=== PATIENT | male | born 1960 | race Caucasian/White ===

== ENCOUNTER 2025-03-04 16:46 | Outpatient (CLI) | payer SELFPAY ==
--- NOTE | 2025-03-04 17:15 | DI.RAD_ITS ---
Exam(s) XR HAND LT COMPLETE XR FOREARM LT XR WRIST LT COMPLETE EXAM: XR WRIST LT COMPLETE and XR forearm LT and XR hand LT complete CLINICAL HISTORY: fall. TECHNIQUE: 2D digital imaging was performed of the left forearm, hand and wrist. Eight images were obtained. PA, oblique and lateral views were obtained. COMPARISON: There are no priors for comparison. FINDINGS: BONES: There is an acute comminuted intra-articular fracture of the distal radius. The fracture is impacted and dorsally angulated. No bony destructive lesion is seen. There also appears to be a ulnar styloid process fracture. JOINTS: The carpal bones are normally aligned. The proximal forearm is unremarkable. SOFT TISSUE: Normal. IMPRESSION: Acute comminuted intra-articular fracture of the distal radius. The fracture is impacted and dorsally angulated. DATA REPOSITORY: RADIATION DOSE DELIVERED:
--- NOTE | 2025-03-04 17:15 | DI.RAD_ITS ---
Exam(s) XR RIBS ONLY LT EXAM: XR RIBS ONLY LT CLINICAL HISTORY: fall TECHNIQUE: 2D digital imaging was performed. Four images are obtained. COMPARISON: No exams were available for comparison FINDINGS: MEDIASTINUM: Normal. HEART: Normal. PULMONARY VASCULATURE: Normal. LUNGS: Clear. PLEURAL SPACE: No pleural effusion or pneumothorax. BONE:Within normal limits for the patient's age. LEFT RIBS: Normal. OTHER FINDINGS:Normal. IMPRESSION: 1. No acute pulmonary findings. 2. Unremarkable left ribs. DATA REPOSITORY: RADIATION DOSE DELIVERED:
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
== END 2025-03-04 17:06 ==
PROVIDERS: Visit Provider Registered Nurse
DX: W19.XXXA Unspecified fall, initial encounter (principal); V19.9XXA Pedal cyclist (driver) (passenger) injured in unspecified traffic accident, initial encounter; S52.572A Other intraarticular fracture of lower end of left radius, initial encounter for closed fracture
CPT/HCPCS: 71100; 73090; 73110; 73130

== ENCOUNTER 2025-03-04 19:01 | Emergency (ER) | payer SELFPAY ==
[2025-03-04 19:05] VITALS: BP 184/96; PULSE 67; RESP 16; TEMP 36.2; O2SAT 100
--- NOTE | 2025-03-04 19:15 | DI.RAD_ITS ---
Exam(s) XR WRIST RT COMPLETE EXAM: XR WRIST RT COMPLETE CLINICAL HISTORY: fall wrist pain and swelling. TECHNIQUE: 2D digital imaging was performed. Three views. COMPARISON: CR,XR XR HAND LT COMPLETE from 03/04/2025 FINDINGS: BONES: Nondisplaced fracture at the articular aspect of the distal radius at the radial styloid. Tiny bony fragment noted posteriorly may be chronic or represent a tiny fracture fragment. No bony destructive lesion is seen. JOINTS: The carpal bones are normally aligned. SOFT TISSUE: Swelling around the wrist. Calcifications near the ulnar styloid could represent chondrocalcinosis. IMPRESSION: Nondisplaced fracture at the articular aspect of the distal radius. DATA REPOSITORY: RADIATION DOSE DELIVERED:
[2025-03-04] MEDS: HYDROmorphone 2 MG/ML SYR 1 MG IVP (19:45)
[2025-03-04] MEDS: Lidocaine 1% Multi-Dose 50 ML VIAL IJ (20:17)
--- NOTE | 2025-03-04 20:30 | DI.RAD_ITS ---
Exam(s) XR WRIST LT COMPLETE EXAM: XR WRIST LT COMPLETE CLINICAL HISTORY: left wrist reduction. TECHNIQUE: 2D digital imaging was performed. Three views. COMPARISON: CR,XR XR WRIST RT COMPLETE from 03/04/2025 CR,XR XR WRIST LT COMPLETE from 03/04/2025 FINDINGS: BONES: A cast has been placed which partially obscures the bony detail. There has been improvement in the alignment of the comminuted intra-articular fracture of the distal radius. The dorsal angulation has been corrected. The ulnar styloid fractures unchanged. JOINTS: The carpal bones are normally aligned. SOFT TISSUE: Marked swelling. IMPRESSION: Improved alignment of distal radial fracture. The preliminary [facility] report was reviewed. DATA REPOSITORY: RADIATION DOSE DELIVERED:
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
--- NOTE | 2025-03-04 22:27 | DI.VRAD_ITS ---
PROCEDURE INFORMATION: Exam: XR Left Wrist Exam date and time: 03/04/2025 8:49 PM Age: 64 years old Clinical indication: Other: Left wrist post reduction TECHNIQUE: Imaging protocol: Radiologic exam of the left wrist. Views: 3 or more views. COMPARISON: CR XR WRIST LT COMPLETE 03/04/2025 5:33 PM FINDINGS: Bones/joints: Status post closed reduction of distal left radial Colles fracture. This is a comminuted epiphyseal fracture. Alignment is good post closed reduction. There is articular extension of the fracture fragment to the mid radial epiphysis. There is a displaced ulnar styloid process fracture. 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 Soft tissues: Soft tissue swelling. IMPRESSION: 1. Post closed reduction with improved alignment of comminuted distal left radial Colles fracture. Articular involvement is noted. 2. Displaced ulnar styloid process fracture. 3. Soft tissue swelling. 4. Lateral wrist osteoarthritic degeneration. Dictated and Authenticated by: Martell Amaral MD. Orderin Magdalena Masters MD
== END 2025-03-04 21:49 | disposition home or self-care (01) ==
PROVIDERS: Emergency Provider Physician Assistant
DX: S62.102A Fracture of unspecified carpal bone, left wrist, initial encounter for closed fracture (principal); V18.0XXA Pedal cycle driver injured in noncollision transport accident in nontraffic accident, initial encounter; S52.501A Unspecified fracture of the lower end of right radius, initial encounter for closed fracture
CPT/HCPCS: 99283; 99284; 25565; 25560; 96372; 73110; J1171; J2003